=== PATIENT | female | born 1945 | race Caucasian/White ===

== ENCOUNTER → 2016-04-30 | Outpatient (CLI) | payer BC ==
[~2016-04-30] MED LIST: ASPCH81X PO; ATOR-54 PO; CLTP PO; GADAVIST IV PRN; MULTCAP33 PO; MULTTAB58 PO; NAPR220T40 PO; NIFE15TA; OMEG10007 PO; PRLSR20 PO; TIMO0.2527 OPB; TRAM-10 PO; TRAZ50TA35 PO; [UNRECOGNIZED DRUG - CODE] PO
--- NOTE | 2016-04-30 12:50 | DIAGNOSTIC IMAGING REPORT ---
MRI OF THE BRAIN WITHOUT AND WITH IV CONTRAST CLINICAL HISTORY: OPTIC NEURITIS, CHOREA COMPARISON STUDY: No previous studies for comparison. TECHNIQUE: Utilizing a 1.5 Mayra magnet and dedicated coil, multiplanar, multiecho imaging of the brain was performed pre and postcontrast administration. IV administration of 5 mL of Gadavist contrast was uneventful. FINDINGS: There are no areas of restricted diffusion. No acute intracranial hemorrhage, midline shift or mass effect is present. There is marked dilatation of the ventricular system which is out of proportion to sulcal enlargement. No intracranial mass or pathologic enhancement is present. There are numerous white matter T2 hyperintense foci which suggest small vessel disease. 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 There is a suspected prominent perivascular space within the left basal ganglia. Flow-voids for the major intracranial vessels are present. Calvarial signal is maintained. Air-fluid levels within both maxillary sinuses are noted. IMPRESSION: 1. Marked ventricular dilatation which is out of proportion to sulcal enlargement. While not definitive, this raises the possibility of normal pressure hydrocephalus. 2. No intracranial mass or pathologic enhancement. 3. Air-fluid levels within the bilateral maxillary sinuses which suggests acute sinusitis. Electronically signed by: Chadd Medina M.D. 04/30/2016 12:48 PM Dictated Date/Time: 04/30/2016 12:37 PM
== END | disposition home or self-care (01) ==
LOC: C.MRIBC 11:23
DX: G25.5 Other chorea (principal); I46.9 Cardiac arrest, cause unspecified; R26.9 Unspecified abnormalities of gait and mobility; Z86.69 Personal history of other diseases of the nervous system and sense organs

== ENCOUNTER → 2016-05-02 | Outpatient (CLI) | payer BC ==
[~2016-05-02] MED LIST changes: -GADAVIST IV PRN
--- NOTE | 2016-05-02 16:27 | MAMMOGRAPHY REPORT ---
BILATERAL DIGITAL SCREENING MAMMOGRAM WITH CAD: 05/02/2016 TECHNIQUE: Current study was also evaluated with a Computer Aided Detection (CAD) system. Bilatera l CC and MLO views were obtained. COMPARISON: Comparison is made to exams dated: 05/01/2015 mammogram, 04/25/2014 mammogram, 04/19/2013 m ammogram, 03/30/2012 mammogram, 03/25/2011 mammogram, and 03/19/2010 mammogram - [facility]. BREAST COMPOSITION: The tissue of both breasts is heterogeneously dense, which may obscure small ma sses. FINDINGS: No suspicious masses, calcifications, or areas of architectural distortion are noted in e ither breast. There has been no significant interval change compared to prior exams. Bilateral elyssa gn appearing calcifications are not significantly changed. Bilateral asymmetries are stable. IMPRESSION: ACR BI-RADS CATEGORY 2: BENIGN There is no mammographic evidence of malignancy. A 1 year screening mammogram is recommended. The p atient will receive written notification of the results. Approximately 10% of breast cancers are not detected with mammography. A negative mammographic repor t should not delay biopsy if a clinically suggestive mass is present. Sophy Rolle M.D. /:05/02/2016 13:56:03 Retail Supervisor: [employer] SALTER,R, M, [facility] letter sent: Normal 1/2 BI-RADS Code: ACR BI-RADS Category 2: Benign
== END | disposition home or self-care (01) ==
LOC: C.MAMM 12:56
PROVIDERS: ATTEND Obstetrics & Gynecology
DX: Z12.31 Encounter for screening mammogram for malignant neoplasm of breast (principal)

== ENCOUNTER → 2016-05-09 | Outpatient (CLI) | payer BC ==
--- NOTE | 2016-05-09 09:09 | DIAGNOSTIC IMAGING REPORT ---
ULTRASOUND ABDOMEN COMPLETE CLINICAL HISTORY: Dyspepsia. Generalized abdominal pain. COMPARISON STUDY: No priors. TECHNIQUE: Real-time, grayscale, and color flow sonography of the abdomen was performed. Images are reviewed in the transverse and longitudinal planes. FINDINGS: Liver: The liver is normal in size and echotexture. There is no intrahepatic biliary ductal dilatation. The main portal vein is patent. Gallbladder: The gallbladder is surgically absent. The common bile duct measures up to 0.6 cm in diameter. Pancreas: Visualized portions of the pancreatic head and body are normal in appearance. Spleen: The spleen is normal in size and echotexture, measuring 8.5 cm in length. Kidneys: The kidneys are normal in size and echotexture. There is no hydronephrosis. The right kidney measures 10.0 cm in length and the left kidney measures 10.4 cm in length. No shadowing calculi are identified. A 1.2 cm left renal cyst is incidentally noted. Abdominal vasculature: Visualized portions of the abdominal aorta and IVC are normal in appearance. Ascites: None. IMPRESSION: 1. No acute sonographic abnormality is identified. 2. Status post cholecystectomy. Electronically signed by: Alexis Glynn M.D. 05/09/2016 9:08 AM Dictated Date/Time: 05/09/2016 9:06 AM
--- NOTE | 2016-05-09 09:48 | DIAGNOSTIC IMAGING REPORT ---
UPPER GI SERIES AND BARIUM SWALLOW CLINICAL HISTORY: Dyspepsia. Abdominal pain. COMPARISON STUDY: None FLUOROSCOPY TIME: 2.5 minutes. FINDINGS: 34 fluoroscopic images were obtained. Esophageal motility is normal. No esophageal mass or stricture is identified. A 13 mm barium tablet passed into the stomach. No hiatal hernia was identified. No reflux was elicited. Gastric fold pattern is normal. Duodenum is unremarkable. IMPRESSION: Unremarkable upper GI series and barium swallow. Electronically signed by: Chadd Medina M.D. 05/09/2016 9:46 AM Dictated Date/Time: 05/09/2016 9:45 AM
== END | disposition home or self-care (01) ==
LOC: C.ULTR 07:37
DX: R10.13 Epigastric pain (principal)

== ENCOUNTER → 2016-12-22 | Outpatient (CLI) | payer BC ==
[2016-12-22 10:48] LABS: BASO % 1.7 %; BASO ABS # 0.05 K/uL (0-0.2); COMPLETE YES; EOS % 3.7 %; HEMATOCRIT 42.8 % (37-47); LYMPH % 47.3 %; LYMPH ABS # 1.42 K/uL (1.2-3.4); MEAN CELL VOLUME 92.6 fL (80-100); MEAN CORPUSCULAR HEMOGLOBIN 30.5 pg (25-34); MEAN CORPUSCULAR HGB CONC 32.9 g/dl (32-36); MEAN PLATELET VOLUME 10.9 fL (7.4-10.4); MONO % 11.7 %; NEUT % 35.6 %; PLATELET COUNT 268 K/uL (130-400); RED BLOOD COUNT 4.62 M/uL (4.2-5.4)
[2016-12-22 11:20] LABS: URINE PROTIEN/CREAT RATIO 0.2 (0-0.2); URINE TOTAL PROTEIN 14.9 mg/dl (0-11.9)
[2016-12-22 11:27] LABS: ALT/SGPT 24 U/L (12-78); AST/SGOT 17 U/L (15-37); BLOOD UREA NITROGEN 24 mg/dl (7-18); BUN/CREATININE RATIO 35.9 (10-20); CALCIUM 9.2 mg/dl (8.5-10.1); CARBON DIOXIDE 30 mmol/L (21-32); CHLORIDE 106 mmol/L (98-107); CREATININE 0.68 mg/dl (0.60-1.20); GLUCOSE 88 mg/dl (70-99); POTASSIUM 3.9 mmol/L (3.5-5.1); SODIUM 141 mmol/L (136-145)
[2016-12-22 11:30] LABS: ALB/GLOB RATIO 1.3 (0.9-2); ALKALINE PHOSPHATASE 83 U/L (45-117); CHOLESTEROL 169 mg/dl (0-200); CHOLESTEROL/HDL RATIO 2.3; HDL CHOLESTEROL 75 mg/dl; LDL CHOLESTEROL CALCULATED 81 mg/dl; TRIGLYCERIDES 65 mg/dl (0-150); VERY LOW DENSITY LIPOPROT CALC 13 mg/dl
[2016-12-29 12:00] LABS: ANA TITER 1:40 TITER (<1:40)
--- NOTE | 2017-01-01 11:45 | CODING QUERY MEDICAL NECESSITY ---
SUPPORTING DIAGNOSIS NEEDED A supporting diagnosis is required for the test/procedure performed on this patient in order for us to be reimbursed by the patient's insurance. Please provide a supporting diagnosis for the following test/procedure listed below next to the test name along with your signature. *If there is no additional diagnosis for this patient that would support the following test/procedure please document that below next to the test/procedure. Test(s)/Procedure(s) that require a supporting diagnosis: * VITAMIN B12 DIAGNOSIS: Provider Signature: Date: Thank you Daphnie Hopkinton [employer] Once completed, please kindly fax back to [phone] For questions please call [phone]
== END | disposition home or self-care (01) ==
LOC: C.LAB 10:02
DX: M19.90 Unspecified osteoarthritis, unspecified site (principal); D64.9 Anemia, unspecified; M81.0 Age-related osteoporosis without current pathological fracture; E78.5 Hyperlipidemia, unspecified; E53.9 Vitamin B deficiency, unspecified

== ENCOUNTER → 2017-03-24 | Outpatient (CLI) | payer BC ==
[2017-03-24 16:56] LABS: BASO % 0.7 %; BASO ABS # 0.03 K/uL (0-0.2); COMPLETE YES; EOS % 3.6 %; HEMATOCRIT 38.5 % (37-47); LYMPH % 17.8 %; LYMPH ABS # 0.79 K/uL (1.2-3.4); MEAN CELL VOLUME 94.6 fL (80-100); MEAN CORPUSCULAR HEMOGLOBIN 31.2 pg (25-34); MEAN PLATELET VOLUME 10.1 fL (7.4-10.4); NEUT % 68.9 %; PLATELET COUNT 195 K/uL (130-400); RED BLOOD COUNT 4.07 M/uL (4.2-5.4); WHITE BLOOD COUNT 4.43 K/uL (4.8-10.8)
[2017-03-24 17:19] LABS: ALT/SGPT 36 U/L (12-78); AST/SGOT 21 U/L (15-37); BLOOD UREA NITROGEN 28 mg/dl (7-18); BUN/CREATININE RATIO 43.3 (10-20); CALCIUM 8.6 mg/dl (8.5-10.1); CARBON DIOXIDE 28 mmol/L (21-32); CHLORIDE 106 mmol/L (98-107); CREATININE 0.65 mg/dl (0.60-1.20); GLUCOSE 109 mg/dl (70-99); POTASSIUM 3.8 mmol/L (3.5-5.1); SODIUM 138 mmol/L (136-145)
[2017-03-24 17:30] LABS: FERRITIN 95.1 ng/ml (8.0-388.0); THYROID STIMULATING HORMONE 0.625 uIu/ml (0.300-4.500)
== END | disposition home or self-care (01) ==
LOC: C.LAB 15:59
DX: R53.83 Other fatigue (principal)

== ENCOUNTER → 2017-05-04 | Outpatient (CLI) | payer BC ==
--- NOTE | 2017-05-05 14:38 | MAMMOGRAPHY REPORT ---
BILATERAL DIGITAL SCREENING MAMMOGRAM TOMOSYNTHESIS WITH CAD: 05/04/2017 CLINICAL HISTORY: Routine screening. TECHNIQUE: Breast tomosynthesis in addition to standard 2D mammography was performed. Current study was also evaluated with a Computer Aided Detection (CAD) system. COMPARISON: Comparison is made to exams dated: 05/01/2015 mammogram, 05/02/2016 mammogram, 04/25/2014 m ammogram, 04/19/2013 mammogram, 03/30/2012 mammogram, and 03/25/2011 mammogram - [facility]. BREAST COMPOSITION: The tissue of both breasts is heterogeneously dense, which may obscure small mas ses. FINDINGS: There are a few punctate benign-appearing microcalcifications in the breasts. No obvious n ew mass, architectural distortion or cluster of suspicious microcalcifications is seen. IMPRESSION: ACR BI-RADS CATEGORY 1: NEGATIVE There is no mammographic evidence of malignancy. A 1 year screening mammogram is recommended. The pa tient will receive written notification of the results. Approximately 10% of breast cancers are not detected with mammography. A negative mammographic report should not delay biopsy if a clinically suggestive mass is present. Amy Luo M.D. ay/:05/04/2017 16:10:14 [employer] Boards Inspector: Rich SALTER(R)(M), [facility] letter sent: Normal 1/2 BI-RADS Code: ACR BI-RADS Category 1: Negative
== END | disposition home or self-care (01) ==
LOC: C.MAMM 11:44
DX: Z12.31 Encounter for screening mammogram for malignant neoplasm of breast (principal)

== ENCOUNTER → 2017-06-11 | Outpatient (CLI) | payer BC ==
[~2017-06-11] MED LIST changes: +CHOL1000 PO
--- NOTE | 2017-06-11 12:17 | DIAGNOSTIC IMAGING REPORT ---
L-SPINE MIN 4 VIEWS ROUTINE CLINICAL HISTORY: LUMBAGO, S/P FALL COMPARISON: Lumbar spine MRI August 06, 2011. FINDINGS: Alignment of lumbar spine is anatomic. No fracture is identified. There is marked disc space narrowing with osteophytosis and vacuum disc phenomenon at L2-L3 and L5-S1. There is moderate multilevel facet arthrosis. IMPRESSION: 1. No acute lumbar spine fracture or subluxation. 2. Severe multilevel disc space narrowing and osteophytosis and moderate to severe multilevel facet arthrosis. Electronically signed by: Chadd Medina M.D. 06/11/2017 12:15 PM Dictated Date/Time: 06/11/2017 12:14 PM
--- NOTE | 2017-06-11 12:18 | DIAGNOSTIC IMAGING REPORT ---
SI JOINTS 3 OR MORE VIEWS CLINICAL HISTORY: LUMBAGO, S/P FALL trauma. Pain. COMPARISON STUDY: None FINDINGS: Minimal degenerative sclerosis of the inferior right sacroiliac joint. No evidence of bony callosum. Sacral foramina appear symmetric. No well-defined acute bony abnormality. IMPRESSION: Mild degenerative change. No acute bony abnormality. The above report was generated using voice recognition software. It may contain grammatical, syntax or spelling errors. Electronically signed by: Rodney Murillo M.D. 06/11/2017 12:17 PM Dictated Date/Time: 06/11/2017 12:15 PM
== END | disposition home or self-care (01) ==
LOC: C.RADBC 11:42
PROVIDERS: ATTEND Physician Assistant
DX: M54.5 Low back pain (principal); W19.XXXA Unspecified fall, initial encounter

== ENCOUNTER → 2017-07-21 | Outpatient (CLI) | payer BC ==
[2017-07-21 16:58] LABS: BASO % 0.6 %; BASO ABS # 0.03 K/uL (0-0.2); EOS % 2.1 %; HEMATOCRIT 39.1 % (37-47); IG# 0.01 K/uL (0.00-0.02); LYMPH % 36.5 %; LYMPH ABS # 1.71 K/uL (1.2-3.4); MEAN CELL VOLUME 93.5 fL (80-100); MEAN CORPUSCULAR HEMOGLOBIN 31.1 pg (25-34); MEAN CORPUSCULAR HGB CONC 33.2 g/dl (32-36); MEAN PLATELET VOLUME 10.6 fL (7.4-10.4); MONO % 11.1 %; MONO ABS # 0.52 K/uL (0.11-0.59); NEUT % 49.5 %; NEUT ABS # 2.32 K/uL (1.4-6.5); PLATELET COUNT 267 K/uL (130-400); RED CELL DISTRIBUTION WIDTH CV 12.9 % (11.5-14.5); RED CELL DISTRIBUTION WIDTH SD 44.3 fL (36.4-46.3); WHITE BLOOD COUNT 4.69 K/uL (4.8-10.8)
[2017-07-21 17:36] LABS: ALT/SGPT 27 U/L (12-78); AST/SGOT 18 U/L (15-37); BLOOD UREA NITROGEN 28 mg/dl (7-18); CARBON DIOXIDE 30 mmol/L (21-32); CREATININE 0.75 mg/dl (0.60-1.20); GLUCOSE 91 mg/dl (70-99); SODIUM 138 mmol/L (136-145)
[2017-07-21 17:45] LABS: TRANSFERRIN 227 mg/dl (200-360)
== END | disposition home or self-care (01) ==
LOC: C.LAB 16:07
DX: G47.00 Insomnia, unspecified (principal); M19.90 Unspecified osteoarthritis, unspecified site; E55.9 Vitamin D deficiency, unspecified

== ENCOUNTER → 2017-11-10 | Outpatient (CLI) | payer BC ==
[2017-11-10 16:35] LABS: BASO ABS # 0.04 K/uL (0-0.2); EOS % 2.3 %; EOS ABS # 0.09 K/uL (0-0.5); HEMATOCRIT 40.3 % (37-47); HEMOGLOBIN 13.3 g/dL (12.0-16.0); LYMPH % 36.4 %; LYMPH ABS # 1.42 K/uL (1.2-3.4); MEAN CELL VOLUME 94.4 fL (80-100); MEAN CORPUSCULAR HEMOGLOBIN 31.1 pg (25-34); MEAN PLATELET VOLUME 11.2 fL (7.4-10.4); MONO % 14.6 %; MONO ABS # 0.57 K/uL (0.11-0.59); NEUT % 45.7 %; NEUT ABS # 1.78 K/uL (1.4-6.5); PLATELET COUNT 240 K/uL (130-400); RED CELL DISTRIBUTION WIDTH SD 45.1 fL (36.4-46.3)
== END | disposition home or self-care (01) ==
LOC: C.LAB 15:23
DX: E61.1 Iron deficiency (principal)

== ENCOUNTER → 2017-11-30 | Outpatient (CLI) | payer BC | END | disposition home or self-care (01) | LOC: C.LABBC 08:59 | DX: R10.9 Unspecified abdominal pain (principal); E78.5 Hyperlipidemia, unspecified ==